=== PATIENT | female | born 2000 | race Two or more races ===

== ENCOUNTER 2021-12-04 22:06 | Emergency (ER) | payer MEDICAID, OTHER ==
[~2021-12-04] VITALS: Ht 157.5 cm; Wt 63.0 kg
[2021-12-05 02:07] VITALS: BP 118/81
[2021-12-05] MEDS ORDERED: TETANUS-DIPTH-ACEL PERTUSSIS 0.5ML SYR Tdap IM ONE (02:45)
== END 2021-12-05 03:28 | disposition home or self-care (01) ==
LOC: ER 22:13
DX: S61.411A Laceration without foreign body of right hand, initial encounter (principal); W25.XXXA Contact with sharp glass, initial encounter; Y93.89 Activity, other specified; Y92.89 Other specified places as the place of occurrence of the external cause; Y99.8 Other external cause status
CPT/HCPCS: 12001; 90471; 90715

== ENCOUNTER 2021-12-14 15:15 | Emergency (ER) | payer MEDICAID | END 2021-12-14 17:56 | disposition left against medical advice (07) | LOC: ER 15:15 | DX: Z48.02 Encounter for removal of sutures (principal); Z53.21 Procedure and treatment not carried out due to patient leaving prior to being seen by health care provider ==